=== PATIENT | female | born 1970 | race Caucasian/White ===

== ENCOUNTER 2021-11-22 16:22 | Inpatient (IN) | payer OTHER ==
[~2021-11-22] VITALS: Ht 157.5 cm; Wt 112.7 kg
[2021-11-22 16:30] VITALS: BP_SYST 137
--- NOTE | 2021-11-22 16:30 | NUR ---
Patient triaged and placed in waiting room. VSS and patient appears in no acute distress at this time. Accompanied by SELF, awaiting available bed, and MD notified of need for MSE.
--- NOTE | 2021-11-22 16:45 | NUR ---
PT STATES 2 DAYS WITH RIGHT ELBOW SWELLING, IN LAST FEW HOURS, WORSE SWELLING AND NOW HOT TO TOUCH. LIMITED ROM DUE TO PAIN, PT STATES SWELLING STARTS AT MID FOREARM TO MID UPPER ARM.
--- NOTE | 2021-11-22 18:06 | NUR ---
DR SKAGGS OUT TO TRIAGE ROOM FOR EVALUATION
[2021-11-22] MEDS ORDERED: HYDROcodone/ACETAMIN 5-325 MG TAB (NORCO/ VICODIN) PO ONE (18:15)
[2021-11-22] MEDS ORDERED: cefTRIAXone 1 GM in D5W 50 ML IV ONE (18:15)
[2021-11-22 19:01] LABS: BASOPHILS # (AUTO) 0.1 K/uL (0.0-0.2); BASOPHILS % (AUTO) 0.3 % (0.0-2.0); EOSINOPHILS # (AUTO) 0.1 K/uL (0.0-0.4); EOSINOPHILS % (AUTO) 0.5 % (0.0-4.0); HEMATOCRIT 41.7 % (36-48); HEMOGLOBIN 13.8 g/dL (12.0-16.0); LYMPHOCYTES # (AUTO) 2.2 K/uL (1.0-5.5); LYMPHOCYTES % (AUTO) 13.1 % (20.5-51.5); MEAN CORPUSCULAR HEMOGLOBIN 30 pg (27-31); MEAN CORPUSCULAR HGB CONC 33 % (32-36); MEAN CORPUSCULAR VOLUME 90 fL (79.0-98.0); MONOCYTES # (AUTO) 1.9 K/uL (0.0-1.0); MONOCYTES % (AUTO) 11.3 % (1.7-9.3); NEUTROPHILS # (AUTO) 12.8 K/uL (1.8-7.7); PLATELET COUNT (AUTO) 349 K/uL (130-430); RED BLOOD CELL COUNT(AUTO) 4.64 MIL/uL (4.2-6.2); RED CELL DISTRIBUTION WIDTH 13.5 % (9.0-15.0); WHITE BLOOD COUNT (AUTO) 17.1 K/uL (4.8-10.8)
--- NOTE | 2021-11-22 19:32 | NUR ---
Patient to ER bed 2 to gown for evaluation. Side rails up. Report given to DREA LANGE(REG).
[2021-11-22] MEDS ORDERED: MORPHINE 4 MG INJ. 4 MG/ML VIAL IVP ONE (19:45)
[2021-11-22] MEDS ORDERED: ONDANSETRON HCL 4 MG/2 ML VIAL IVP ONE (19:45)
[2021-11-22] MEDS ORDERED: NACL 0.9% 1,000 ML IV ONE (19:45)
[2021-11-22 19:51] LABS: NEUTROPHILS % (AUTO) 74.8 % (40.0-70.0)
[2021-11-22] MEDS ORDERED: LIDOCAINE 1% 10 MG/ML, 20 ML MDV INJ ONE (20:00)
[2021-11-22] MEDS ORDERED: cefTRIAXone 1 GM VIAL ONE (20:31)
[2021-11-22 20:39] LABS: CALCIUM 9.1 mg/dL (8.4-11.0); CREATININE 0.85 mg/dL (0.55-1.30); POTASSIUM 4.1 mmol/L (3.5-5.1)
[2021-11-22 20:46] LABS: ALBUMIN 3.2 g/dL (3.4-4.8); C-REACTIVE PROTEIN QUANT 1.6 mg/dL (0-0.5); TOTAL BILIRUBIN 0.2 mg/dL (0.0-1.0)
--- NOTE | 2021-11-22 20:49 | NUR ---
Assume care of pt by Jovan LANGE, pt c/o right elbow pain x 2days, elbow red/swollen, hot to touch, pt states she feels tingling in right arm. pt placed on pulse ox and BP. NKDA
--- NOTE | 2021-11-22 21:10 | NUR ---
Admit bed requested Patient will be admitted to care of . Admitted to MS unit. Diagnosis RIGHT ELBOW CELLULITIS Inpatient (Yes or No) YES Observation (Yes or No) NO Orientation concerns or request close to nursing station (Yes or No) NO Covid Status PENDINIG On vent or bipap NO Isolation requirements NO Needs a sitter NO From Home (Yes or if No enter name of facility) YES Requires Dialysis (Yes or No) NO Med Rec Completed (Yes of No) PENDING
[2021-11-22 21:16] LABS: ERYTHROCYTE SEDIMENTATION RATE 19 MM/HR (0-20)
--- NOTE | 2021-11-22 21:20 | NUR ---
Dr Vuong at bedside with patient.
--- NOTE | 2021-11-22 21:50 | NUR ---
PT RIGHT ELBOW CLEANED WITH NS, PAT DRY, 4X4 GAUZE APPLIED AND WRAPPED WITH CHRIS WRAP. PT TOLERATED WELL. PT RESTING IN BED. WAITING FOR ADMISSION BED.
--- NOTE | 2021-11-22 23:13 | NUR ---
placed in arm sling for support. pt ambulated to restroom with upright steady gait.
--- NOTE | 2021-11-22 23:22 | NUR ---
Awaiting for covid result.Per CLS pending result.
[2021-11-23] VITALS (7 sets, daily range): BP systolic 122–134
--- NOTE | 2021-11-23 00:15 | NUR ---
Admitted to MED/SURG unit. Will go to room 109C. Belongings list completed. Complete and up to date summary report printed. SBAR report to be given at bedside with opportunity for questions.
[2021-11-23] MEDS ORDERED: LISI40TA13 PO (00:53)
--- NOTE | 2021-11-23 05:39 | NUR ---
Closing note- Received pt from ED around [place]. Pt awake, alert and oriented. C/o Rt elbow erythema, edema and pain. Rt elbow dressing intact. Ambulatory with minimal assist. V/S stable afebrile.
[2021-11-23] MEDS ORDERED: guaiFENesin/DEXTROMETHORPHAN 10 ML UDC PO PRN (07:45)
[2021-11-23] MEDS ORDERED: ONDANSETRON HCL 4 MG/2 ML VIAL IVP PRN (07:45)
[2021-11-23] MEDS ORDERED: MORPHINE 2 MG/ML INJ. SYRINGE IVP PRN (07:45)
[2021-11-23] MEDS: NACL 0.9% 1,000 ML IV SCH ×2 (07:45→23:19)
[2021-11-23] MEDS ORDERED: ZOLPIDEM TARTRATE 5 MG TABLET PO PRN (07:45)
[2021-11-23] MEDS ORDERED: ACETAMINOPHEN 500 MG TABLET PO PRN (07:45)
[2021-11-23] MEDS ORDERED: DOCUSATE SODIUM 100 MG/10 ML UDC PO PRN (07:45)
[2021-11-23] MEDS ORDERED: HYDROcodone/ACETAMIN 7.5-325 MG TAB PO PRN (07:45)
[2021-11-23 08:14] LABS: BASOPHILS # (AUTO) 0.1 K/uL (0.0-0.2); BASOPHILS % (AUTO) 0.4 % (0.0-2.0); EOSINOPHILS % (AUTO) 0.3 % (0.0-4.0); HEMATOCRIT 37.6 % (36-48); HEMOGLOBIN 13.3 g/dL (12.0-16.0); LYMPHOCYTES # (AUTO) 1.6 K/uL (1.0-5.5); LYMPHOCYTES % (AUTO) 11.4 % (20.5-51.5); MEAN CORPUSCULAR HEMOGLOBIN 32 pg (27-31); MEAN CORPUSCULAR HGB CONC 36 % (32-36); MEAN CORPUSCULAR VOLUME 89 fL (79.0-98.0); MONOCYTES # (AUTO) 1.5 K/uL (0.0-1.0); NEUTROPHILS # (AUTO) 10.6 K/uL (1.8-7.7); NEUTROPHILS % (AUTO) 76.9 % (40.0-70.0); PLATELET COUNT (AUTO) 272 K/uL (130-430); RED BLOOD CELL COUNT(AUTO) 4.22 MIL/uL (4.2-6.2); RED CELL DISTRIBUTION WIDTH 13.6 % (9.0-15.0); WHITE BLOOD COUNT (AUTO) 13.8 K/uL (4.8-10.8)
[2021-11-23 08:43] LABS: PROTHROMBIN TIME 10.2 SECS (9.5-12.5)
[2021-11-23 08:45] LABS: CALCIUM 8.4 mg/dL (8.4-11.0); CREATININE 0.69 mg/dL (0.55-1.30); FREE T4 (FREE THYROXINE) 1.1 ng/dl (0.8-1.5); PHOSPHORUS 3.4 mg/dL (2.7-4.5); POTASSIUM 3.9 mmol/L (3.5-5.1); THYROID STIMULATING HORMONE 0.85 uIu/mL (0.36-3.74)
--- NOTE | 2021-11-23 09:02 | NUR ---
CONSULTATION PAGED REASON FOR CONSULTATION:SEPTIC ARTHRITIS WAS CONSULT CALLED?Y -PERSON WHO WAS NOTIFIED:WILLIS HOPKINS CONSULTING PHYSICIAN:WILLIS HOPKINS MANAGER [employer]PERIENCE SPECIALTY:ORTHO MANAGER [employer]IENCE PHONE NUMBER:[phone] REQUESTING PHYSICIAN:MALISSA VERGAAR
[2021-11-23] MEDS: PANTOPRAZOLE SODIUM 40 MG TAB PO SCH (11:14)
[2021-11-23] MEDS: VANCOMYCIN HCL 1,250 MG in NS 250 ML IV SCH ×2 (11:19→23:18)
[2021-11-23] MEDS: KETOROLAC TROMETHAMINE 15 MG VIAL IVP SCH ×3 (13:15→23:18)
--- NOTE | 2021-11-23 21:25 | NUR ---
MRSA of the Nares collected & sent to lab .
[2021-11-24 00:44] LABS: BILIRUBIN,URINE NEGATIVE (NEGATIVE); BLOOD, URINE NEGATIVE (NEGATIVE); CLARITY/URINE CLEAR (CLEAR); COLOR,URINE YELLOW (YELLOW); GLUCOSE,URINE NEGATIVE (NEGATIVE); KETONES,URINE NEGATIVE (NEGATIVE); LEUKOCYTE ESTERASE ,URINE NEGATIVE (NEGATIVE); NITRITE, URINE NEGATIVE (NEGATIVE); PROTEIN URINE NEGATIVE (NEGATIVE)
[2021-11-24 01:00] VITALS: BP_SYST 125
[2021-11-24 01:23] LABS: BARBITURATE, URINE NEGATIVE (NEG <=200); BENZODIAZEPINE, URINE NEGATIVE (NEG <=150); CANNABINOID, URINE NEGATIVE (NEG <=50); COCAINE, URINE NEGATIVE (NEG <=150); METHAMPHETAMINES SCREEN,URINE NEGATIVE (NEG <=500); OPIATE, URINE POSITIVE (NEG <=100); PHENCYCLIDINE SCREEN,URINE NEGATIVE (NEG <=25); UR TRICYCLIC ANTIDEPRESSANTS NEGATIVE (NEG <=300); URINE AMPHETAMINE NEGATIVE (NEG <=500); URINE METHADONE NEGATIVE (NEG <=200); URINE OXYCODONE SCREEN NEGATIVE (NEG <=100); URINE PROPOXYPHENE SCREEN NEGATIVE (NEG <=300)
--- NOTE | 2021-11-24 04:14 | NUR ---
URINE COLLECTED & SENT TO LAB .
[2021-11-24 06:53] LABS: BASOPHILS # (AUTO) 0.1 K/uL (0.0-0.2); BASOPHILS % (AUTO) 0.5 % (0.0-2.0); EOSINOPHILS # (AUTO) 0.1 K/uL (0.0-0.4); EOSINOPHILS % (AUTO) 0.8 % (0.0-4.0); HEMATOCRIT 37.4 % (36-48); LYMPHOCYTES # (AUTO) 1.8 K/uL (1.0-5.5); LYMPHOCYTES % (AUTO) 15.7 % (20.5-51.5); MEAN CORPUSCULAR HEMOGLOBIN 31 pg (27-31); MEAN CORPUSCULAR HGB CONC 35 % (32-36); MEAN CORPUSCULAR VOLUME 89 fL (79.0-98.0); MONOCYTES # (AUTO) 1.2 K/uL (0.0-1.0); MONOCYTES % (AUTO) 10.9 % (1.7-9.3); NEUTROPHILS # (AUTO) 8.3 K/uL (1.8-7.7); NEUTROPHILS % (AUTO) 72.1 % (40.0-70.0); PLATELET COUNT (AUTO) 260 K/uL (130-430); RED BLOOD CELL COUNT(AUTO) 4.19 MIL/uL (4.2-6.2); RED CELL DISTRIBUTION WIDTH 13.1 % (9.0-15.0); WHITE BLOOD COUNT (AUTO) 11.4 K/uL (4.8-10.8)
[2021-11-24] MEDS: KETOROLAC TROMETHAMINE 15 MG VIAL IVP SCH ×2 (07:30→13:21)
--- NOTE | 2021-11-24 07:30 | NUR ---
Report received from overnight babysitter RN for continuity of care. Patient stable condition. No distress noted.
[2021-11-24 07:47] LABS: CALCIUM 8.8 mg/dL (8.4-11.0); CREATININE 0.72 mg/dL (0.55-1.30); POTASSIUM 4.1 mmol/L (3.5-5.1)
[2021-11-24 08:00] VITALS: BP_SYST 118
[2021-11-24] MEDS: PANTOPRAZOLE SODIUM 40 MG TAB PO SCH (08:35)
[2021-11-24] MEDS: VANCOMYCIN HCL 1,250 MG in NS 250 ML IV SCH (08:35)
[2021-11-24] MEDS ORDERED: CLIN-142 PO (08:56)
[2021-11-24] MEDS ORDERED: IBUP-1970 PO (08:56)
[2021-11-24] MEDS ORDERED: POTASSIUM CHLORIDE 20 MEQ TAB.PRT.SR PO PRN (09:00)
--- NOTE | 2021-11-24 11:02 | NUR ---
Spoke with Dr. 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 Phillips Ok with discharge at this time.
[2021-11-24 12:00] VITALS: BP_SYST 120
[2021-11-24 15:25] VITALS: BP_SYST 132
--- NOTE | 2021-11-24 15:49 | NUR ---
Patient's ride here. All paperwork given and education provided for discharge. No distress noted. Vital signs stable. Patient able to move around and ambulate to wheelchair. Patient transported to [facility] where pick patient up. IV removed prior to discharge and site is C/D/I.
[2021-11-24 16:00] VITALS: BP_SYST 115
== END 2021-11-24 16:10 | disposition home or self-care (01) | DRG 603 ==
LOC: SED 16:22 → SMU 21:09
PROVIDERS: ADMIT Student in an Organized Health Care Education/Training Program; ATTEND Student in an Organized Health Care Education/Training Program
PROC: 0R9L3ZZ Drainage of Right Elbow Joint, Percutaneous Approach (ICD-10-PCS; principal; 2021-11-22)
DX: L03.113 Cellulitis of right upper limb (principal); E87.1 Hypo-osmolality and hyponatremia; E44.1 Mild protein-calorie malnutrition; Z68.42 Body mass index [BMI] 45.0-49.9, adult; M65.241 Calcific tendinitis, right hand; Z20.822 Contact with and (suspected) exposure to COVID-19; I10 Essential (primary) hypertension; Z85.3 Personal history of malignant neoplasm of breast
CPT/HCPCS: 36415; 80048; 80053; 80061; 80307; 81003; 82150; 83036; 83690; 83735; 83880; 84100; 84439; 84443; 85025; 85610-TC; 85651-TC; 85730-TC; 86140; 87040; 87081; 96365; 96375; 99285; J0696; J1885; J2001; J2270; J2405; J3370; J7050

== ENCOUNTER 2023-04-22 12:47 | Emergency (ER) | payer OTHER ==
[~2023-04-22] VITALS: Ht 149.9 cm; Wt 108.9 kg
[~2023-04-22 12:47] MED LIST: CLIN-142 PO; IBUP-1970 PO; LISI40TA13 PO
[2023-04-22 12:50] VITALS: BP_SYST 143; PULSE 105; RESP 18; TEMP 98.4; O2SAT 98
[2023-04-22 15:59] LABS: BASOPHILS # (AUTO) 0.1 K/uL (0.0-0.2); BASOPHILS % (AUTO) 0.8 % (0.0-2.0); EOSINOPHILS # (AUTO) 0.3 K/uL (0.0-0.4); EOSINOPHILS % (AUTO) 3.2 % (0.0-4.0); HEMATOCRIT 39.8 % (36-48); HEMOGLOBIN 13.9 g/dL (12.0-16.0); LYMPHOCYTES # (AUTO) 2.4 K/uL (1.0-5.5); LYMPHOCYTES % (AUTO) 24.7 % (20.5-51.5); MEAN CORPUSCULAR HEMOGLOBIN 30 pg (27-31); MEAN CORPUSCULAR HGB CONC 35 % (32-36); MEAN CORPUSCULAR VOLUME 87 fL (79.0-98.0); MONOCYTES # (AUTO) 1.4 K/uL (0.0-1.0); MONOCYTES % (AUTO) 14.8 % (1.7-9.3); NEUTROPHILS # (AUTO) 5.4 K/uL (1.8-7.7); NEUTROPHILS % (AUTO) 56.5 % (40.0-70.0); PLATELET COUNT (AUTO) 308 K/uL (130-430); RED BLOOD CELL COUNT(AUTO) 4.57 MIL/uL (4.2-6.2); RED CELL DISTRIBUTION WIDTH 13.4 % (9.0-15.0); WHITE BLOOD COUNT (AUTO) 9.6 K/uL (4.8-10.8)
[2023-04-22 16:15] LABS: INR 1.1 (0.8-1.2); PROTHROMBIN TIME 10.9 SECS (9.5-12.5)
[2023-04-22 16:37] LABS: ALANINE AMINOTRANSFERASE 24 U/L (12-78); ALBUMIN 3.3 g/dL (3.4-4.8); ANION GAP 9 (5-15); ASPARTATE AMINOTRANSFERASE 28 U/L (10-37); CALCIUM 8.9 mg/dL (8.4-11.0); CARBON DIOXIDE 24 mmol/L (23-29); CHLORIDE 102 mmol/L (98-107); CREATININE 0.74 mg/dL (0.55-1.30); GFR AFRICAN AMERICAN 106 mL/min (>90); GFR NON AFRICAN-AMERICAN 87 mL/min (>90); GLUCOSE 90 mg/dL (74-106); SODIUM SERUM 135 mmol/L (136-145); TOTAL BILIRUBIN 0.6 mg/dL (0.0-1.0); TOTAL PROTEIN, SERUM 8.3 g/dL (6.4-8.3); UREA NITROGEN, BLOOD 17 mg/dL (8-21)
[2023-04-22 16:57] LABS: BILIRUBIN,DIRECT 0.1 mg/dL (0.0-0.3)
[2023-04-22] MEDS ORDERED: CLIN-22 PO (17:08)
[2023-04-22 17:29] VITALS: BP_SYST 143; PULSE 105; RESP 18; TEMP 98.4; O2SAT 98
== END 2023-04-22 17:28 | disposition home or self-care (01) ==
LOC: SED 12:47
DX: R60.0 Localized edema (principal); L03.116 Cellulitis of left lower limb; I10 Essential (primary) hypertension; Z85.3 Personal history of malignant neoplasm of breast; Z79.899 Other long term (current) drug therapy
CPT/HCPCS: 36415; 71045; 80048; 80076; 83605; 83880; 84484; 85025; 85610-TC; 85730-TC; 93005; 93971; 99285